=== PATIENT | female | born 1950 | race Caucasian/White ===

== ENCOUNTER → 2019-07-12 07:41 | Outpatient (BNVA) | payer MEDICARE, OTHER, SELFPAY | PROVIDERS: Family Provider Family Medicine; PCP Family Medicine; Visit Provider Nurse Practitioner | DX: F33.2 Major depressive disorder, recurrent severe without psychotic features (principal) | CPT/HCPCS: 99213 ==

== ENCOUNTER → 2019-08-24 07:38 | Outpatient (BNVA) | payer MEDICARE, OTHER, SELFPAY | PROVIDERS: Family Provider Family Medicine; PCP Family Medicine; Visit Provider Nurse Practitioner | DX: F33.2 Major depressive disorder, recurrent severe without psychotic features (principal) | CPT/HCPCS: 99213 ==

== ENCOUNTER → 2020-02-06 07:53 | Outpatient (BNVA) | payer MEDICARE, OTHER, SELFPAY | PROVIDERS: Family Provider Family Medicine; PCP Family Medicine; Visit Provider Nurse Practitioner | DX: F33.2 Major depressive disorder, recurrent severe without psychotic features (principal); F90.2 Attention-deficit hyperactivity disorder, combined type | CPT/HCPCS: 99213 ==

== ENCOUNTER → 2020-07-30 07:58 | Outpatient (BNVA) | payer MEDICARE, OTHER, SELFPAY | PROVIDERS: Family Provider Family Medicine; PCP Family Medicine; Visit Provider Nurse Practitioner | DX: F33.2 Major depressive disorder, recurrent severe without psychotic features (principal); F90.1 Attention-deficit hyperactivity disorder, predominantly hyperactive type | CPT/HCPCS: 99214 ==

== ENCOUNTER 2020-11-26 13:20 | Outpatient (CLI) | payer MEDICARE, OTHER, SELFPAY ==
--- NOTE | 2020-11-26 13:33 | MR_ITS ---
WS: [id number] MRI BRAIN WITHOUT CONTRAST HISTORY: WORSENING DAILY HEADACHES COMPARISON: None available. TECHNIQUE: Diffusion imaging, multiplanar T1, T2 and FLAIR imaging obtained. No evidence for acute infarct or hemorrhage. Jason-white matter differentiation is normal. Moderate to severe T2 and FLAIR signal hyperintensities throughout the white matter. Bilateral distri bution in the supratentorial brain. No prior infarcts. Small lacunar infarcts versus perivascular spa osiris in the inferior basal ganglia. Ventricles and extra-axial spaces are normal. No inferior displacement of cerebellar tonsils. The sella turcica and pituitary gland are unremarkabl e. Dural venous sinuses and [place] demonstrate no abnormality on this unenhanced studies. Paranasal sinuses: Clear. Mastoid air cells: Moderate RIGHT mastoid air cell effusion. Calvarium and scalp: Intact. MR/MR head wo con* [id number] IMPRESSION: 1. No acute infarct. 2. Moderate chronic microvascular ischemic changes in the white matter, suprat entorial brain. 3. RIGHT mastoid effusion.
== END 2020-11-26 13:21 | disposition home or self-care (01) ==
LOC: RADSHAW 13:31
PROVIDERS: PCP Family Medicine; Visit Provider Family Medicine
DX: R51.9 Headache, unspecified (principal); I67.82 Cerebral ischemia; G93.6 Cerebral edema
CPT/HCPCS: 70551

== ENCOUNTER 2021-01-02 12:00 | Outpatient (CLI) | payer MEDICARE, OTHER, SELFPAY | END 2021-01-02 12:01 | disposition home or self-care (01) | LOC: SLEEP 01-03 09:58 | PROVIDERS: PCP Family Medicine; Visit Provider Family Medicine | DX: G47.10 Hypersomnia, unspecified (principal) | CPT/HCPCS: G0399 ==

== ENCOUNTER → 2021-01-28 10:25 | Outpatient (BNVA) | payer MEDICARE, OTHER, SELFPAY | PROVIDERS: PCP Family Medicine; Visit Provider Nurse Practitioner | DX: F33.2 Major depressive disorder, recurrent severe without psychotic features (principal) | CPT/HCPCS: 99214 ==

== ENCOUNTER → 2021-07-03 14:31 | Outpatient (BNVA) | payer MEDICARE, OTHER, SELFPAY | PROVIDERS: PCP Family Medicine; Visit Provider Nurse Practitioner Family | DX: M25.552 Pain in left hip (principal); W19.XXXA Unspecified fall, initial encounter; Y92.009 Unspecified place in unspecified non-institutional (private) residence as the place of occurrence of the external cause | CPT/HCPCS: 73502 ==

== ENCOUNTER → 2021-07-29 09:16 | Outpatient (BNVA) | payer MEDICARE, OTHER, SELFPAY | PROVIDERS: PCP Family Medicine; Visit Provider Nurse Practitioner | DX: F33.2 Major depressive disorder, recurrent severe without psychotic features (principal) | CPT/HCPCS: 99214 ==

== ENCOUNTER → 2022-08-11 10:26 | Outpatient (BNVA) | payer MEDICARE, OTHER, SELFPAY | PROVIDERS: PCP Family Medicine; Visit Provider Family Medicine | DX: T14.8XXA Other injury of unspecified body region, initial encounter (principal); W57.XXXA Bitten or stung by nonvenomous insect and other nonvenomous arthropods, initial encounter | CPT/HCPCS: 86618; 86666; 86757 ==

== ENCOUNTER → 2023-03-13 08:39 | Outpatient (BNVA) | payer MEDICARE, OTHER, SELFPAY | PROVIDERS: PCP Family Medicine; Visit Provider Nurse Practitioner Family | DX: N39.0 Urinary tract infection, site not specified (principal) | CPT/HCPCS: 87077; 87086; 87184 ==

== ENCOUNTER → 2023-10-14 09:35 | Outpatient (BNVA) | payer MEDICARE, OTHER, SELFPAY | PROVIDERS: PCP Family Medicine; Visit Provider Nurse Practitioner Family | DX: D48.5 Neoplasm of uncertain behavior of skin (principal); L30.4 Erythema intertrigo; L82.1 Other seborrheic keratosis; L81.4 Other melanin hyperpigmentation; D18.01 Hemangioma of skin and subcutaneous tissue; L92.3 Foreign body granuloma of the skin and subcutaneous tissue | CPT/HCPCS: 11102; 99214 ==

== ENCOUNTER 2024-05-30 08:38 | Outpatient (CLI) | payer MEDICARE, OTHER, SELFPAY ==
--- NOTE | 2024-05-30 16:08 | SC_ITS ---
FL barium swallow modifd [id number] REASON FOR EXAM: Other dysphagia FLUOROSCOPY TIME: 3min [id number] SPOT FILMS: 0 TECHNIQUE: Examination was supervised by the speech therapy department. Speech therapy department. Patient was evaluated in the sitting upright lateral projection. The swallowing of barium of varying consistencies was monitored fluoroscopically and video recorded. FINDINGS: Intermittent penetration of contrast into the vestibule of the larynx with no aspiration. The barium tablet moved through the esophagus and into the fundus of the stomach without obstruction. IMPRESSION: Modified barium swallow as above. Detailed report of the swallowing will be reported by the speech therapy department. MTDD
== END 2024-05-30 08:39 | disposition home or self-care (01) ==
PROVIDERS: PCP Family Medicine; Visit Provider Family Medicine
DX: R13.19 Other dysphagia (principal); R93.89 Abnormal findings on diagnostic imaging of other specified body structures
CPT/HCPCS: 74230; 92611

== ENCOUNTER → 2024-10-28 09:57 | Outpatient (BNVA) | payer MEDICARE, OTHER, SELFPAY | PROVIDERS: PCP Family Medicine; Visit Provider Nurse Practitioner Family | DX: L30.4 Erythema intertrigo (principal); L21.8 Other seborrheic dermatitis; L82.1 Other seborrheic keratosis; L81.4 Other melanin hyperpigmentation; D18.01 Hemangioma of skin and subcutaneous tissue | CPT/HCPCS: 99214 ==